=== PATIENT | female | born 1990 | race Caucasian/White ===

== ENCOUNTER 2017-08-08 22:44 | Emergency (ER) | payer SELFPAY ==
--- NOTE | 2017-08-08 23:30 | ED.PDOC ---
History of Present Illness - General Chief Complaint: GI Problem Stated Complaint: n/v/d Time Seen by Provider: 08/08/17 23:20 Source: patient Exam Limitations: no limitations Additional Information: PT HAS HAD URI SX'S FOR 1 WEEK. TODAY DEVELOPED N/V/D AND GENERAL MALAISE. IS CONCERNED SHE MAY HAVE INFLUENZA. - History of Present Illness Timing/Duration: 24 hours Severity: mild Improving Factors: nothing Worsening Factors: eating Associated Symptoms: cough, headaches Allergies/Adverse Reactions: Allergies NO KNOWN ALLERGY Allergy (Verified 04/24/14 15:53) Home Medications: Ambulatory Orders Zoloft 08/08/17 Ondansetron [Zofran Odt] 4 mg PO TID PRN #6 tab 08/09/17 Review of Systems - Review of Systems Constitutional: States: other - UNKNOWN FEVER. Denies: chills EENTM: States: throat pain. Denies: ear pain, nose congestion Respiratory: States: cough. Denies: orthopnea, short of breath, wheezing Cardiology: Denies: chest pain, palpitations Gastrointestinal/Abdominal: States: diarrhea - WATERY NO BLOOD, vomiting. Denies: abdominal pain Genitourinary: States: no symptoms reported Musculoskeletal: States: no symptoms reported Skin: States: no symptoms reported Neurological: States: no symptoms reported Hematologic/Lymphatic: States: no symptoms reported Past Medical History (General) - Patient Medical History Hx Stroke: No Hx Congestive Heart Failure: No Hx Diabetes: No Hx Renal Disease: No Hx MRSA: No Surgical History: no surgical history - Vaccination History Hx Influenza Vaccination: No - Social History Hx Tobacco Use: No Hx Substance Use: No - Female History Patient is a Female of Child Bearing Age (10 -59 yrs old): Yes Hx Last Menstrual Period: 12/11/13 Patient : No Expected Date of Delivery:: 09/04/12 Family Medical History - Family History Mother Family History: No Known Living Status: Still Living Physical Exam - Physical Exam General Appearance: Alert, No apparent distress Eye Exam: bilateral normal Ears, Nose, Throat: normal ENT inspection, normal pharynx, other - NL TM'S Neck: non-tender, supple, normal inspection Respiratory: lungs clear, no respiratory distress Cardiovascular/Chest: regular rate, rhythm, no murmur Gastrointestinal/Abdominal: non tender, soft, no organomegaly Back Exam: normal inspection, no CVA tenderness Extremity: normal range of motion, normal inspection Neurologic: alert, normal mood/affect Skin Exam: normal color, warm/dry Lymphatic: no adenopathy Progress - Progress Progress: 08/09/17 00:24 FLU NEG Departure - Departure Clinical Impression: Gastroenteritis Time of Disposition: 00:25 Disposition: Discharge to Home or Self Care Condition: Excellent Departure Forms: ED Discharge - Pt. Copy, Patient Portal Self Enrollment Instructions: Viral Gastroenteritis Referrals: Jhony Martin MD [Primary Care Provider] - 1-2 Weeks Prescriptions: Ondansetron [Zofran Odt] 4 mg PO TID PRN #6 tab PRN Reason: Nausea/Vomiting Home Medications: Ambulatory Orders Zoloft 08/08/17 Ondansetron [Zofran Odt] 4 mg PO TID PRN #6 tab 08/09/17
[2017-08-09 00:35] VITALS: BP 101/69; TEMP 97.9; O2SAT 96
== END 2017-08-09 00:34 | disposition home or self-care (01) ==
LOC: ER 22:44
DX: K52.9 Noninfective gastroenteritis and colitis, unspecified (principal)